=== PATIENT | female | born 1995 | race Caucasian/White ===

== ENCOUNTER 2023-07-04 16:35 | Emergency (ER) | payer OTHER ==
[2023-07-04 16:50] VITALS: BP 138/94; O2SAT 100
--- NOTE | 2023-07-04 17:16 | ED Physician Documentation ---
PD HPI UPPER EXT INJURY - Stated complaint Stated Complaint: L FINGER LAC - Chief complaint Chief Complaint: Ext Problem - History obtained from History obtained from: Patient - Additonal information Additional information: Patient is a 27-year-old female presenting for evaluation of a laceration to her left index finger that occurred just prior to arrival as she was cutting celery. Her last tetanus booster was in 2015. Does not take a blood thinner. Bleeding is controlled with pressure. Review of Systems Constitutional: denies: Fever Skin: reports: Laceration (s) PD PAST MEDICAL HISTORY - Past Medical History Past Medical History: No - Past Surgical History Past Surgical History: No - Present Medications Home Medications: Ambulatory Orders Medication Instructions Recorded Confirmed No Known Home Medications 07/04/23 07/04/23 - Allergies Allergies/Adverse Reactions: Allergies Allergy/AdvReac Type Severity Reaction Status Date / Time No Known Drug Allergies Allergy Verified 07/04/23 16:44 - Social History Does the pt smoke?: No Smoking Status: Never smoker PD ED PE NORMAL - General General: Alert and oriented X 3, No acute distress, Well developed/nourished - HEENT HEENT: Atraumatic - Respiratory Respiratory: No respiratory distress - Extremities Extremities: Other (1 cm skin avulsion to left index finger on the lateral aspect, no nailbed involvement, normal range of motion at PIP and DIP) Results - Vitals Vitals: Vital Signs - 24 hr 07/04/23 16:40 Temperature 36.7 C Heart Rate 78 Respiratory 20 Rate Blood Pressure 138/94 H O2 Saturation 100 Procedures - Laceration (location) Left index finger Length in cm: 1 Wound type: Irregular Neurovascular status: Sensory intact, Motor intact, Vascular intact Tendon involvement: Tendon intact Wound preparation: Hibiclens, Irrigated copiously NS Skin layer closure: Dermabond Other: Patient tolerated well, No complications, Neurovascular intact, Dressing applied, Tetanus UTD PD Medical Decision Making - ED course ED course: Patient with avulsion to left index finger. Nothing to suture. Wound was cleaned and irrigated and closed with Dermabond with good hemostasis. Dressing was applied. Her tetanus is already up-to-date. Patient counseled on wound care instructions as well as concerning symptoms to return for. Departure - Departure Disposition: 01 Home, Self Care Clinical Impression: Laceration of left index finger Condition: Stable Instructions: ED Laceration Ext Skin Glue Comments: You have a laceration to your left index finger that was closed with skin glue as there is nothing to stitch back together. Please keep the dressing on for the next 24 hours. Please take caution as the wound is healing. Return to the ER with any concerning symptoms. Forms: PCP List Discharge Date/Time: 07/04/23 17:30
== END 2023-07-04 17:30 | disposition home or self-care (01) ==
LOC: ED 16:35
DX: S61.211A Laceration without foreign body of left index finger without damage to nail, initial encounter (principal); W26.0XXA Contact with knife, initial encounter; Y93.G1 Activity, food preparation and clean up
CPT/HCPCS: 12001; 99281